=== PATIENT | male | born 1990 | race Two or more races ===

== ENCOUNTER 2023-10-18 09:55 | Emergency (ER) | payer MEDICAID, OTHER ==
[~2023-10-18] VITALS: Ht 182.9 cm; Wt 84.9 kg
[2023-10-18] MEDS: methylPREDNISolone SOD SUCC 125 MG/2 ML VL IM ONE (11:40)
[2023-10-18] MEDS: KETOROLAC TROMETH 30 MG/ML 1ML VIAL IM ONE (11:40)
[2023-10-18 11:49] VITALS: BP 124/76; PULSE 63; RESP 16; TEMP 97.6; O2SAT 98
[2023-10-18] MEDS ORDERED: IBUP1TAB5 PO (12:04)
== END 2023-10-18 12:39 | disposition home or self-care (01) ==
LOC: ER 09:55
DX: M94.0 Chondrocostal junction syndrome [Tietze] (principal); F17.210 Nicotine dependence, cigarettes, uncomplicated; F12.10 Cannabis abuse, uncomplicated
CPT/HCPCS: 71046; 96372; 99284; J1885; J2919; J7030